=== PATIENT | male | born 1995 | race Caucasian/White ===

== ENCOUNTER 2022-11-09 13:44 | Outpatient (RCR) | payer OTHER ==
[~2022-11-09 13:44] MED LIST: NORCO 325 MG-51 TAB PO
== END 2022-11-19 | disposition home or self-care (01) ==
LOC: WSOH
DX: S32.029D Unspecified fracture of second lumbar vertebra, subsequent encounter for fracture with routine healing (principal); S32.039D Unspecified fracture of third lumbar vertebra, subsequent encounter for fracture with routine healing; S32.049D Unspecified fracture of fourth lumbar vertebra, subsequent encounter for fracture with routine healing; Y99.0 Civilian activity done for income or pay